=== PATIENT | male | born 1995 | race African-American/Black ===

== ENCOUNTER 2023-04-08 17:42 | Emergency (ER) | payer OTHER ==
[~2023-04-08] VITALS: Ht 182.9 cm; Wt 77.0 kg
[2023-04-08 17:52] VITALS: O2SAT 98
[2023-04-08 19:13] LABS: BASOPHILS % 0.5 % (0.0-2.0); EOSINOPHILS % 1.5 % (0.0-5.0); HEMATOCRIT. 38.1 % (42.0-52.0); HEMOGLOBIN. 12.7 g/dL (14.0-18.0); LYMPHOCYTES % 32.6 % (20.0-50.0); MEAN CORPUSCULAR HEMOGLOBIN 29.1 pg (28.0-32.0); MEAN CORPUSCULAR VOLUME 87.1 fL (80.0-94.0); MEAN PLATELET VOLUME 10.1 fl (7.4-10.4); MONOCYTES % 9.3 % (2.0-8.0); NEUTROPHILS % 56.1 % (40.0-76.0); PLATELET 164 x1000/uL (130-400); RED BLOOD CELL COUNT 4.37 mill/uL (4.7-6.1)
[2023-04-08 19:21] LABS: CHLORIDE 104 mEq/L (98-107)
[2023-04-08] MEDS ORDERED: ACETAMINOPHEN 325MG TABLET PO ONE (20:30)
[2023-04-08 21:54] VITALS: BP 123/78; PULSE 58; RESP 12; TEMP 98.5
== END 2023-04-08 21:57 | disposition home or self-care (01) ==
LOC: ER 17:42
DX: R07.89 Other chest pain (principal)
CPT/HCPCS: 80053; 85025; 84484; 36415; 71045; 93005; 99285; Z7610